=== PATIENT | male | born 1970 | race Caucasian/White ===

== ENCOUNTER → 2017-10-18 12:37 | Outpatient (REF) | payer OTHER, SELFPAY ==
[2017-10-18 14:07] LABS: Basophils # 0.1 K/mm3 (0-0.2); Basophils % 0.4 % (0.1-2.0); Eosinophils % 0.3 % (0.1-12.0); Hemoglobin 14.8 g/dL (14.1-18.0); Lymphocytes % 12.1 K/mm3 (10-50); Mean Corpuscular HGB Conc 32.3 g/dL (31.8-35.4); Mean Corpuscular Hemoglobin 28.5 pg (27.0-31.2); Mean Corpuscular Volume 88.4 fl (80-94); Mean Platelet Volume 9.2 fl (7.4-10.4); Monocytes # 0.9 K/mm3 (0.1-1.0); Monocytes % 5.6 % (1.7-9.3); Neutrophils # 13.6 K/mm3 (1.8-7.8); Neutrophils % 81.7 % (37.0-80.0); Platelet Count 243 K/mm3 (142-424); Red Blood Count 5.21 M/mm3 (4.60-6.20); Red Cell Distribution Width 12.5 % (11.5-17.5); White Blood Count 16.7 K/mm3 (4.8-10.8)
[2017-10-18 14:19] LABS: MANUAL DIFFERENTIAL MANUAL DIFFERENTIAL (MANUAL DIFF)
[2017-10-18 14:28] LABS: Alanine Aminotransferase 96 U/L (12-78); Albumin Level 3.8 gm/dL (3.4-5.0); Albumin/Globulin Ratio 0.8 (1.1-1.8); Alkaline Phosphatase 188 U/L (46-116); Anion Gap 16.6 mEq/L (5-15); Aspartate Amino Transferase 35 U/L (15-37); Bilirubin,Total 0.5 mg/dL (0.2-1.0); Blood Urea Nitrogen 19 mg/dL (7-18); Calcium 9.8 mg/dL (8.5-10.1); Carbon Dioxide 25 mmol/L (21.0-32.0); Chloride 94 mmol/L (98-107); Chol/HDL Ratio 5.4 (1-3.5); Cholesterol 198 mg/dL (140-200); Estimated Glomerular Filt Rate 80 ml/min (>60); GFR (African American) 97 ML/MIN (>60); Globulin 4.6 gm/dl (1.3-3.2); HDL Cholesterol 37 mg/dL (27-67); LDL Cholesterol 129 mg/dL (0-130); Potassium 4.6 mmoL/L (3.5-5.1); Sodium 131 mmol/L (136-145); T4 (Thyroxine) 6.9 ug/dl (4.7-13.3); Thyroid Stimulating Hormone 1.11 uIU/ml (0.358-3.740); Total Protein,Serum 8.4 gm/dL (6.4-8.2); Triglycerides 159 mg/dL (30-200); VLDL Cholesterol 32 mg/dL (0-40)
[2017-10-18 14:31] LABS: Glucose 468 mg/dL (74-106)
[2017-10-18 14:51] LABS: Hemoglobin A1C 10.9 % (0.0-7.0)
[2017-10-18 15:10] LABS: Lymphocytes % 10 % (10-50); Monocytes % 5 % (2-9); Neutrophils % 85 % (42-76); RBC Morphology Normal; Total Cells Counted 100
[2017-10-18 15:11] LABS: Platelet Estimate Normal
[2017-10-19 09:22] LABS: Hep A Ab, IgM Negative (Negative); Hepatitis B Core Antibody IgM Negative (Negative); Hepatitis B Surface Antigen Negative (Negative)
[2017-10-19 13:37] LABS: Hepatitis C Antibody 0.1 s/co ratio (0.0-0.9); Vitamin D 25 Hydroxy 32.3 ng/mL (30.0-100.0)
== END ==
LOC: LAB 12:37
PROVIDERS: Visit Provider Physician Assistant
DX: E11.9 Type 2 diabetes mellitus without complications (principal)
CPT/HCPCS: 80053; 80061; 80074; 82652; 83036; 84436; 84443; 85007; 85025